=== PATIENT | female | born 1995 ===

== ENCOUNTER 2024-06-23 01:33 | Observation (INO) | payer OTHER ==
[~2024-06-23] VITALS: Ht 170.2 cm; Wt 81.6 kg
[2024-06-23] MEDS ORDERED: PREN-96 OR (02:29)
--- NOTE | 2024-06-23 03:25 | DVH ---
EXAM: US OB ULTRASOUND COMP GTR 14 WKS HISTORY: contractions TECHNIQUE: Multiple real-time grayscale images of the gravid uterus with duplex Doppler color flow an d M-mode spectral analysis. COMPARISON: None FINDINGS: IUP single live fetus at 30 weeks, 5 days average ultrasound age (AUA) based on composite averages of the BPD, head circumference, abdominal circumference and femur length MEASUREMENTS: BPD: 7.8 cm GA: 31 w 2 d HC: 27.4 cm GA: 30 w 0 d AC: 26.0 cm GA: 30 w 1 d FL: 6.0 cm GA: 31 w 3 d Estimated weight 1062 grams heart rate 154 beats per minute RICARDO 10.74 cm ANATOMIC SURVEY: Cephalic Presentation Posterior placenta without previa or abruption Cervix closed measuring 3.97 cm IMPRESSION: 1. IUP single live fetus at 30 weeks 5 days AUA corresponding to an DASHA of 08/27/2024.
--- NOTE | 2024-06-23 04:01 | DVHDS2 ---
Physician Discharge Progress N Final Diagnosis: 29.4 weeks gestation contractions Condition on Discharge: Good Disposition: Home Discharge Instructions: Diet: Regular Activity: No Restrictions, As Tolerated Follow Up/Referral: Please follow up with your primary care OB for follow up as soon as possible. Medications: vits Follow Up Care: Discharge Statement: "Patient was advised to return to the ER or call 911 if any headaches, dizziness, shortness of breath, chest pain, abdominal pain, bleeding, fevers, or worsening of medical condition. Patient was counseled about treatment plan, medications, possible side effects, patientverbalized understanding. All questions were answered to the best of my ability. This discharge took greater then 30 minutes in planning, reviewing documentation, counseling the patient, and discussing with other team members." TODD SCHNEIDER CNM Jun 23, 2024 04:01
== END 2024-06-23 03:49 | disposition home or self-care (01) ==
LOC: LDRP 01:33
PROVIDERS: ADMIT Obstetrics & Gynecology; ATTEND Obstetrics & Gynecology
DX: O60.03 Preterm labor without delivery, third trimester (principal); Z98.890 Other specified postprocedural states; Z3A.29 29 weeks gestation of pregnancy; Z79.899 Other long term (current) drug therapy
CPT/HCPCS: 59025; 76805; 76817; 81002; 94762; G0378